=== PATIENT | male | born 1960 | race American Indian/Alaskan Native ===

== ENCOUNTER 2017-03-12 08:22 | Outpatient (CLI) | payer MEDICARE ==
--- NOTE | 2017-03-12 12:49 | Fluoroscopy Report ---
SMALL BOWEL SERIES: INDICATION: Intestinal obstruction. COMPARISON: 08/25/2015 CT. FINDINGS: Small bowel series performed. Meter Supervisor view demonstrates nonobstructive pattern with generalized bowel gas. An IVC filter projects at L1-L2 on the right with few adjacent sutures as well. 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 Few bony degenerative changes. Serial abdominal radiographs subsequently obtained after administration of oral contrast and demonstrate normal antegrade progression with small bowel transit time of 1 hour and 45 minutes. No focal suspicious filling defects, to the extent assessed, though much of opacified small bowel noted within the right hemiabdomen, in keeping with CT suspicion of malrotation. Spot radiographs do not clearly visualize the terminal ileum, though suggest grossly normal peristalsis in that region. CONCLUSION: Malrotation without small bowel obstruction and few other findings, as above. Please correlate. Thank you for the opportunity to participate in this patient's care.
== END 2017-03-12 08:23 | disposition home or self-care (01) ==
LOC: FLUORO 08:22
PROVIDERS: ATTEND Surgery
DX: K56.609 Unspecified intestinal obstruction, unspecified as to partial versus complete obstruction (principal); Q43.3 Congenital malformations of intestinal fixation; I10 Essential (primary) hypertension; D64.9 Anemia, unspecified; F32.9 Major depressive disorder, single episode, unspecified; F17.200 Nicotine dependence, unspecified, uncomplicated
CPT/HCPCS: 74250; Q9963

== ENCOUNTER 2020-03-02 13:21 | Emergency (ER) | payer MEDICARE ==
--- NOTE | 2020-03-02 13:32 | Emergency Department Report ---
ED Abdominal Pain HPI - General Chief Complaint: Abdominal Pain Stated Complaint: ABD PAIN Time Seen by Provider: 03/02/20 13:27 - History of Present Illness Initial Comments: Patient is a 59-year-old male presents emergency department for evaluation of intermittent mild left leg pain since but he states began last night. Contrary to history of present illness, patient was evaluated at [place] emergency department yesterday for same complaint and discharge. Patient denies nausea vomiting diarrhea, denies GI bleeding, denies fever, denies dysuria. - Related Data Home Medications Medication Instructions Recorded Confirmed Last Taken Acetaminophen [Acetaminophen TAB] 650 mg PO Q6HR PRN 05/12/13 08/25/15 05/11/13 DULoxetine [Cymbalta] 30 mg PO DAILY 05/12/13 08/25/15 05/11/13 Lubiprostone (Nf) [Amitiza (Nf)] 24 mcg PO DAILY 05/12/13 08/25/15 Unknown OLANzapine [ZyPREXA] 5 mg PO QHS 05/12/13 08/25/15 05/11/13 Sennosides/Docusate Sodium [Senna 1 tab PO BID 05/12/13 08/25/15 Unknown Laxative Tablet] cloNIDine [Catapres] 0.2 mg .ROUTE DAILY 05/12/13 08/25/15 Unknown polyethylene glycoL 3350 [Miralax 17 gm PO DAILY 05/12/13 08/25/15 05/11/13 3350] Melatonin 2 mg PO DAILY 08/25/15 08/25/15 Unknown Previous Rx's Medication Instructions Recorded Last Taken Type Pantoprazole [Protonix TAB] 40 mg PO QDAY #30 tablet 05/19/13 Unknown Rx Sucralfate [Carafate] 1 gm PO Q6HR #120 udc 05/19/13 Unknown Rx levoFLOXacin [Levaquin TAB] 750 mg PO Q24HR #5 tablet 03/13/18 Unknown Rx Allergies Allergy/AdvReac Type Severity Reaction Status Date / Time No Known Allergies Allergy Verified 04/05/15 17:00 ED Review of Systems ROS: Stated complaint: ABD PAIN Other details as noted in HPI Comment: All other systems reviewed and negative ED Past Medical Hx - Past Medical History Hx Hypertension: Yes Hx Congestive Heart Failure: No Hx Diabetes: Yes Hx GERD: Yes Hx Arthritis: Yes Hx Psychiatric Treatment: Yes (hx psychosis, encephalopathy, depressive disorder) Hx Asthma: No Hx COPD: No Additional medical history: bowel obstruction - Surgical History Additional Surgical History: L above knee amputation. - Social History Smoking Status: Never Smoker - Medications Home Medications: Home Medications Medication Instructions Recorded Confirmed Last Taken Type Acetaminophen [Acetaminophen TAB] 650 mg PO Q6HR PRN 05/12/13 08/25/15 05/11/13 History DULoxetine [Cymbalta] 30 mg PO DAILY 05/12/13 08/25/15 05/11/13 History Lubiprostone (Nf) [Amitiza (Nf)] 24 mcg PO DAILY 05/12/13 08/25/15 Unknown History OLANzapine [ZyPREXA] 5 mg PO QHS 05/12/13 08/25/15 05/11/13 History Sennosides/Docusate Sodium [Senna 1 tab PO BID 05/12/13 08/25/15 Unknown History Laxative Tablet] cloNIDine [Catapres] 0.2 mg .ROUTE DAILY 05/12/13 08/25/15 Unknown History polyethylene glycoL 3350 [Miralax 17 gm PO DAILY 05/12/13 08/25/15 05/11/13 History 3350] Pantoprazole [Protonix TAB] 40 mg PO QDAY #30 tablet 05/19/13 08/25/15 Unknown Rx Sucralfate [Carafate] 1 gm PO Q6HR #120 udc 05/19/13 08/25/15 Unknown Rx Melatonin 2 mg PO DAILY 08/25/15 08/25/15 Unknown History levoFLOXacin [Levaquin TAB] 750 mg PO Q24HR #5 tablet 03/13/18 Unknown Rx ED Physical Exam - General General appearance: alert, in no apparent distress - Head Head exam: Present: atraumatic, normocephalic - Eye Eye exam: Present: normal appearance - ENT ENT exam: Present: mucous membranes moist - Neck Neck exam: Present: normal inspection - Respiratory Respiratory exam: Present: normal lung sounds bilaterally. Absent: respiratory distress - Cardiovascular Cardiovascular Exam: Present: regular rate, normal rhythm. Absent: systolic murmur, diastolic murmur, rubs, gallop - GI/Abdominal GI/Abdominal exam: Present: soft, normal bowel sounds - Rectal Rectal exam: Present: deferred - Extremities Exam Extremities exam: Present: other (Left AKA) - Back Exam Back exam: Present: normal inspection - Neurological Exam Neurological exam: Present: alert, oriented X3 - Psychiatric Psychiatric exam: Present: normal affect, normal mood - Skin Skin exam: Present: warm, dry, intact, normal color. Absent: rash ED Course - Reevaluation(s) Reevaluation #1: 03/02/20 14:34 Patient refuses IV normal saline, refuses IV Toradol Reevaluation #2: 03/02/20 14:35 On discharge patient remains in no acute distress with a soft nontender abdomen. ED Medical Decision Making - Radiology Data Abdominal x-ray: Nonspecific bowel gas pattern as interpreted by me Critical care attestation.: If time is entered above; I have spent that time in minutes in the direct care of this critically ill patient, excluding procedure time. ED Disposition Clinical Impression: Abdominal pain Disposition: DC-01 TO HOME OR SELFCARE Is pt being admited?: No Condition: Stable Instructions: Abdominal Pain, Adult, [id number]
--- NOTE | 2020-03-02 14:35 | XRay Report ---
ABDOMINAL SERIES WITH CHEST X-RAY ONE VIEW HISTORY: Abdominal pain COMPARISON: 03/12/2018 AP abdomen FINDINGS: Single view of the chest is within normal limits. Supine and upright views the abdomen demo nstrate moderate fecal matter throughout the length of the colon. No evidence for obstruction, large fluid levels or free air. IVC filter is in place at the level of L2. IMPRESSION: Constipation. Signer Name: Wang Summers Jr, MD Signed: 03/02/2020 2:30 PM Workstation Name: [id number]
[2020-03-02 15:22] LABS: Bacteria,Urine 2+ /HPF (Negative); Bilirubin,Urine SM (Negative); Blood,Urine NEG (Negative); Color,Urine Amber (Yellow); Mucus,Urine 3+ /HPF
[2020-03-02 15:28] LABS: Protein,Urine >500 mg/dL (Negative)
[2020-03-02] MEDS ORDERED: levoFLOXacin 500 MG TAB PO ONE (15:31)
[2020-03-02 15:39] LABS: Ictotest,Urine Negative (Negative)
[2020-03-02 19:05] VITALS: BP 136/70
== END 2020-03-02 18:00 | disposition home or self-care (01) ==
LOC: ED 13:21
DX: R10.9 Unspecified abdominal pain (principal); I10 Essential (primary) hypertension; E11.9 Type 2 diabetes mellitus without complications; K21.9 Gastro-esophageal reflux disease without esophagitis; M19.90 Unspecified osteoarthritis, unspecified site; Z79.899 Other long term (current) drug therapy
CPT/HCPCS: 74022; 81001; 87076; 87086; 87186